=== PATIENT | female | born 1970 | race Caucasian/White ===

== ENCOUNTER 2017-05-31 15:07 | Emergency (ER) | payer OTHER ==
--- NOTE | 2017-05-31 15:11 | PDOC ---
Rapid Medical Evaluation Time Seen by Provider: 05/31/17 15:08 Medical Evaluation: Allergies Allergy/AdvReac Type Severity Reaction Status Date / Time No Known Allergies Allergy Verified 10/19/15 14:05 05/31/17 15:09 I have performed a brief in-person evaluation of this patient. The patient presents with a chief complaint of:? anxiety vs weakness x 1 month, worse today. Seen by her pmd 03/23 w/ negative labs per pt. No sig hx Pertinent physical exam findings:Stable I have ordered the following:labs/ua The patient will proceed to the ED for further evaluation. 05/31/17 15:14
[2017-05-31 15:16] VITALS: BP 151/93; PULSE 97; TEMP 98.1; BMI 38.0
[2017-05-31 15:36] LABS: BASO % 1.2 % (0-2.0); EOS % 1.4 % (0-4.5); HEMATOCRIT 33.2 % (32.4-45.2); HEMOGLOBIN 10.8 GM/dL (10.7-15.3); LYMPH % 18.3 % (8-40); MCH 23.1 pg (25.7-33.7); MCHC 32.4 g/dl (32.0-36.0); MEAN CELL VOLUME 71.2 fl (80-96); MONO % 4.8 % (3.8-10.2); NEUT % 74.3 % (42.8-82.8); PLATELET COUNT 306 K/MM3 (134-434); RBC 4.67 M/mm3 (3.60-5.2); RDW 17.6 % (11.6-15.6); URINE APPEARANCE CLEAR; URINE BILIRUBIN NEGATIVE (<2.0 mg/dL); URINE BLOOD NEGATIVE (NEGATIVE); URINE COLOR STRAW; URINE GLUCOSE (UA) NEGATIVE (NEGATIVE); URINE KETONE NEGATIVE (NEGATIVE); URINE LEUK ESTERASE NEGATIVE (NEGATIVE); URINE NITRITE NEGATIVE (NEGATIVE); URINE PROTEIN NEGATIVE (NEGATIVE); URINE UROBILINOGEN NEGATIVE mg/dL (0.2-1.0); WHITE BLOOD COUNT 9.2 K/mm3 (4.0-10.0)
[2017-05-31 15:37] LABS: HCG,QUALITATIVE URINE NEGATIVE
--- NOTE | 2017-05-31 17:15 | PDOC ---
History of Present Illness - General Chief Complaint: Pain Stated Complaint: Feeling nervous, left arm pain, calm Time Seen by Provider: 05/31/17 15:08 History Source: Patient Exam Limitations: No Limitations - History of Present Illness Initial Comments: 05/31/17 17:10 This 47-year-old woman without significant past medical history of presents to the emergency department with 1 month of intermittent nervousness and left arm pain. Patient states she has not contacted her primary M.D. for evaluation yet. She saw her primary doctor approximately 3 weeks ago for influenza-type symptoms. Patient states her symptoms have been primarily at home but over the past 2 days have been appearing while at work. The duration of symptoms were approximately one hour at onset but now off progressed to last 2-3 hours at a time. At present the patient denies all complaints. Patient denies any change in caffeine intake, life stressors, alcohol intake. Patient denies drug use and tobacco use. Past History - Past Medical History Allergies/Adverse Reactions: Allergies Allergy/AdvReac Type Severity Reaction Status Date / Time No Known Allergies Allergy Verified 05/31/17 16:41 Home Medications: Ambulatory Orders NK [No Known Home Medication] 10/19/15 COPD: No Other medical history: denies - Surgical History Abdominal Surgery: Yes - Suicide/Smoking/Psychosocial Hx Smoking Status: Yes Smoking History: Never smoked Have you smoked in the past 12 months: No Number of Cigarettes Smoked Daily: 0 If you are a former smoker, when did you quit?: 1999 Information on smoking cessation initiated: No Hx Alcohol Use: No Drug/Substance Use Hx: No Substance Use Type: Alcohol Review of Systems - Review of Systems Able to Perform ROS?: Yes Is the patient limited Swedish proficient: No Constitutional: No: Symptoms Reported HEENTM: No: Symptoms Reported Respiratory: No: Symptoms reported Cardiac (ROS): Yes: See HPI ABD/GI: No: Symptoms Reported : No: Symptoms Reported Musculoskeletal: No: Symptoms Reported Integumentary: No: Symptoms Reported Neurological: No: Symptoms reported Hematologic/Lymphatic: No: Symptoms Reported *Physical Exam - Vital Signs Last Vital Signs Temp Pulse Resp BP Pulse Ox 98.1 F 97 H 18 151/93 99 05/31/17 15:10 05/31/17 15:10 05/31/17 15:10 05/31/17 15:10 05/31/17 15:10 - Physical Exam General Appearance: Yes: Appropriately Dressed. No: Apparent Distress HEENT: positive: Normal ENT Inspection Neck: positive: Trachea midline, Supple Respiratory/Chest: positive: Lungs Clear, Normal Breath Sounds. negative: Respiratory Distress, Accessory Muscle Use Cardiovascular: positive: Regular Rate, S1, S2, Irregular (Patient with occasional missed beats noted during auscultation). negative: Edema, Murmur Gastrointestinal/Abdominal: positive: Normal Bowel Sounds, Soft. negative: Tender Musculoskeletal: positive: Normal Inspection. 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, Fully Oriented, Alert, Normal Mood/ Affect, Normal Response, Motor Strength 5/5 Heart Score/ECG Review - ECG Intrepretation Rhythm: PVC(s) (frequent) - ECG Impressions Normal ECG: Yes ED Treatment Course - LABORATORY CBC & Chemistry Diagram: 05/31/17 15:28 05/31/17 15:26 - ADDITIONAL ORDERS Additional order review: Laboratory Results 05/31/17 05/31/17 15:28 15:27 TSH 2.15 Urine Color Straw Urine Appearance Clear Urine pH 7.0 Ur Specific [place] 1.005 Urine Protein Negative Urine Glucose (UA) Negative Urine Ketones Negative Urine Blood Negative Urine Nitrite Negative Urine Bilirubin Negative Urine Urobilinogen Negative Ur Leukocyte Esterase Negative Urine HCG, Qual Negative 05/31/17 15:28 RBC 4.67 MCV 71.2 L MCHC 32.4 RDW 17.6 H D MPV 9.0 Neutrophils % 74.3 Lymphocytes % 18.3 D Monocytes % 4.8 Eosinophils % 1.4 Basophils % 1.2 Medical Decision Making - Medical Decision Making 05/31/17 17:15 CC: 1 month of intermittent nervousness A/P: 47-year-old over the past medical history of presents with 1 month of intermittent shakiness/nervousness Lungs clear to auscultation bilaterally. Regular rhythm with occasional missed beats noted on auscultation. No murmur, rub or gallop present. Abdomen soft nontender nondistended. Normoactive bowel sounds. Differential diagnosis include arrhythmia, hyperthyroidism, infection, anxiety EKG, urinalysis, urine testing, TSH Urinalysis and TSH testing within normal limits. UPT negative. EKGs normal sinus with occasional PVCs Discharge patient to follow-up with her primary doctor. 05/31/17 17:[address] Arizmendi who is covering for Dr. mancia. States frequent PVCs with absence of heart failure symptoms can be treated as an outpatient. I will refer patient to her primary doctor for continued workup for potential Holter monitor testing, echocardiogram and possible stress testing. *DC/Admit/Observation/Transfer Diagnosis at time of Disposition: PVCs (premature ventricular contractions) - Discharge Dispostion Disposition: HOME Condition at time of disposition: Stable Admit: No - Referrals Referrals: Stephen Hernandez MD [Primary Care Provider] - - Patient Instructions Additional Instructions: EKG showed frequent PVCs. He to make an appointment with her primary doctor for further evaluation and potential Holter monitor evaluation as an outpatient. Laboratory testing was normal. Avoid caffeine intake. Return to emergency department for shortness of breath, chest pain, nausea, vomiting, dizziness, passing out or any other concerns - Post Discharge Activity
[2017-05-31 17:39] LABS: ALBUMIN 3.5 g/dl (3.4-5.0); ANION GAP 5 (8-16); CALCIUM 8.8 mg/dL (8.5-10.1); CHLORIDE 107 mmol/L (98-107); CO2 28 mmol/L (21-32); GLUCOSE,RANDOM 129 mg/dL (74-106); POTASSIUM 4.2 mmol/L (3.5-5.1); SODIUM 140 mmol/L (136-145)
[2017-05-31 17:42] LABS: ALK PHOS 199 U/L (45-117); BILIRUBIN,TOTAL 0.2 mg/dL (0.2-1.0); BLOOD UREA NITROGEN 7 mg/dL (7-18); CREATININE 0.8 mg/dL (0.55-1.02); SGOT/AST 44 U/L (15-37); SGPT/ALT 69 U/L (12-78); TOT PROT 7.5 g/dl (6.4-8.2)
--- NOTE | 2017-06-01 11:41 | EKG ---
Test Reason : Blood Pressure : / mmHG Vent. Rate : 083 BPM Atrial Rate : 083 BPM P-R Int : 128 ms QRS Dur : 080 ms QT Int : 372 ms P-R-T Axes : 032 -07 011 degrees QTc Int : 437 ms SINUS RHYTHM WITH PREMATURE SUPRAVENTRICULAR COMPLEXES OTHERWISE NORMAL ECG WHEN COMPARED WITH ECG OF 22-DEC-2011 18:38, PREMATURE SUPRAVENTRICULAR COMPLEXES ARE NOW PRESENT Confirmed by ARANZA MILLAN, KENY ([id number]) on 06/01/2017 11:40:38 AM Referred By: Ricarda ESPINOZA Confirmed By:KENY COBIAN MD
== END 2017-05-31 17:57 | disposition home or self-care (01) ==
LOC: JERFT 15:07
DX: I49.3 Ventricular premature depolarization (principal)
CPT/HCPCS: 36415; 80053; 81003; 84443; 84703; 85025; 93005; 93010; 99281-25

== ENCOUNTER 2017-10-10 18:53 | Observation (INO) | payer OTHER ==
--- NOTE | 2017-10-10 19:09 | PDOC ---
Rapid Medical Evaluation Chief Complaint: Head/Neck problem Time Seen by Provider: 10/10/17 19:07 Medical Evaluation: Allergies Allergy/AdvReac Type Severity Reaction Status Date / Time No Known Allergies Allergy Verified 06/06/17 10:41 10/10/17 19:07 I have performed a brief in-person evaluation of this patient. The patient presents with a chief complaint of: L facial/UE numbness w/ generalized weakness that started at 6pm today Pertinent physical exam findings:stable and in NAD w/ ? sensation to L face compared to R I have ordered the following: CT head/labs The patient will proceed to the ED for further evaluation. 10/10/17 19:13 Discharge Disposition - Diagnosis Left sided numbness - Referrals - Patient Instructions - Post Discharge Activity
--- NOTE | 2017-10-10 19:44 | PDOC ---
Attending Attestation - Resident Resident Name: Reno Sawyer - ED Attending Attestation I have performed the following: I have examined & evaluated the patient, The case was reviewed & discussed with the resident, I agree w/resident's findings & plan, Exceptions are as noted - Physicial Exam PE: 10/10/17 22:06 Physical Exam General Appearance: Yes: Appropriately Dressed. No: Apparent Distress, Intoxicated HEENT: positive: EOMI, LGOAN, Normal ENT Inspection, Normal Voice, TMs Normal, Pharynx Normal. negative: Pale Conjunctivae, Photophobia, Scleral Icterus (R), Scleral Icterus (L) Neck: positive: Trachea midline, Normal Thyroid, Supple. negative: Tender, Rigid, Carotid bruit, Stridor, Lymphadenopathy (R), Lymphadenopathy (L), Thyromegaly Respiratory/Chest: positive: Lungs Clear, Normal Breath Sounds. negative: Chest Tender, Respiratory Distress, Accessory Muscle Use, Labored Respiration, RES, Crackles, Rales, Rhonchi, Stridor, Wheezing, Dullness Cardiovascular: positive: Regular Rhythm, Regular Rate, S1, S2. negative: Edema , JVD, Murmur, Bradycardia, Tachycardia Vascular Pulses: Dorsalis-Pedis (R): 2+, Doralis-Pedis (L): 2+ Gastrointestinal/Abdominal: positive: Normal Bowel Sounds, Flat, Soft. negative : Tender, Organomegaly, Pulsatile Mass, Increased Bowel Sounds, Decreased BS, Distended, Guarding, Rebound, Hernia, Hepatomegaly, Spleenomegaly Lymphatic: negative: Adenopathy, Tenderness Musculoskeletal: positive: Normal Inspection. negative: CVA Tenderness, Decreased Range of Motion Extremity: positive: Normal Capillary Refill, Normal Inspection, Normal Range of Motion, Pelvis Stable. negative: Tender, Pedal Edema, Swelling, Erythema Integumentary: positive: Normal Color, Dry, Warm. 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 negative: EOM Palsy, Facial Droop, Sensory Deficit - Medical Decision Making 10/10/17 22:07 Pt will be admitted for further evaluation and care <Ezequiel Bahena - Last Filed: 10/10/17 22:06> - HPI HPI: 10/10/17 20:04 The patient is a 47 year old female, with a significant past medical history of fatty liver, who presents to the emergency department with, an hour and half of numbness to the left side of the face and left upper extremity. She reports associated generalized weakness. She denies any recent head trauma. She denies any pain. She denies recent fevers , chills, headache or dizziness. She denies recent nausea, vomit, diarrhea or constipation. She denies recent dysuria, frequency, urgency or hematuria. She denies recent chest pain or shortness of breath. Allergies: NKA Past surgical history: None reported. Social history: Former smoker; quit in 1999. Alcohol use. No reported drug use. Primary Care Physician: Dr. Hernandez <Gabe Kelly - Last Filed: 10/11/17 01:04> Heart Score/ECG Review #1 10/11/17 01:02 EKG performed at: 11 Oct 2017 at 0:57:09 Vent Rate [address] interval 122 ms QRS duration 82 ms QT/QTc 406/456 ms P-R-T axes 27 -12 0 Normal sinus rhythm T wave abnormality, consider anterior ischemia Abnormal ECG <Gabe Kelly - Last Filed: 10/11/17 01:04> Attestations - Attestations 10/10/17 20:05 Documentation prepared by Gabe Kelly, acting as medical social worker for Ezeuqiel Bahena DO. 10/10/17 21:17 <Gabe Kelly - Last Filed: 10/11/17 01:04>
[2017-10-10 21:15] LABS: HEMATOCRIT 35.3 % (32.4-45.2); HEMOGLOBIN 11.5 GM/dL (10.7-15.3); LYMPH % 12.5 % (8-40); MCHC 32.5 g/dl (32.0-36.0); MEAN CELL VOLUME 73.9 fl (80-96); MONO % 4.7 % (3.8-10.2); NEUT % 80.8 % (42.8-82.8); PLATELET COUNT 280 K/MM3 (134-434); RBC 4.78 M/mm3 (3.60-5.2); WHITE BLOOD COUNT 10.5 K/mm3 (4.0-10.0)
[2017-10-10 21:16] LABS: URINE APPEARANCE CLEAR; URINE BILIRUBIN NEGATIVE (<2.0 mg/dL); URINE COLOR STRAW; URINE GLUCOSE (UA) NEGATIVE (NEGATIVE); URINE KETONE NEGATIVE (NEGATIVE); URINE LEUK ESTERASE NEGATIVE (NEGATIVE); URINE NITRITE NEGATIVE (NEGATIVE); URINE PROTEIN NEGATIVE (NEGATIVE); URINE UROBILINOGEN NEGATIVE mg/dL (0.2-1.0)
[2017-10-10 21:31] LABS: ALBUMIN 3.9 g/dl (3.4-5.0); ANION GAP 9 (8-16); BILIRUBIN,TOTAL 0.4 mg/dL (0.2-1.0); BLOOD UREA NITROGEN 10 mg/dL (7-18); CALCIUM 8.8 mg/dL (8.5-10.1); CHLORIDE 108 mmol/L (98-107); CO2 26 mmol/L (21-32); CREATININE 0.9 mg/dL (0.55-1.02); GLUCOSE,RANDOM 117 mg/dL (74-106); INR 1.02 (0.83-1.09); PROTHROMBIN TIME (PATIENT) 11.5 SEC (9.7-13.0); SGOT/AST 34 U/L (15-37); SGPT/ALT 71 U/L (12-78); SODIUM 143 mmol/L (136-145); TOT PROT 8.1 g/dl (6.4-8.2)
[2017-10-10 21:33] LABS: ALK PHOS 219 U/L (45-117)
--- NOTE | 2017-10-10 22:22 | PDOC ---
History of Present Illness - General Chief Complaint: Head/Neck problem Stated Complaint: NUMBNESS FACE AND LEFT ARM SINCE 6PM Time Seen by Provider: 10/10/17 19:07 History Source: Patient Exam Limitations: No Limitations - History of Present Illness Initial Comments: 10/10/17 22:24 Ms. Casiano is a 47 yo F with a hx of afib (recent dx as of June 2017) who presented to the emergency department with facial numbness on the right side. She states it occurred at 5:50 pm where she had numbness on the mid face right side and upper right side face. She states that she took aspirin 81 mg at 6:10 pm. She denies focal neuro deficits and a headache. Denies the following: fever , chest pain, SOB, diarrhea, hematuria, dysuria, and diarrhea. Denies nausea and vomiting. Pmhx: afib Shx: lasix bilaterally 2017 Medications: metoprolol and omeprazole. No anticoagulants. Allergies: None Social history: denies smoking, alcohol, and drug use. 10/12/17 16:37 tPA Exclusion Checklist 0-3hr - Time Elapsed Date last known well: 10/10/17 Time last known well: 17:50 Elaspsed time: 2 Day(s) and 13 Hour(s) and 54 Minutes - Thrombolytic Therapy Candidate Is the patient eligible for Thrombolytic Therapy?: Yes - Exclusion Criteria 0-3hr SBP greater than 185 or DBP greater than 110mmHg despite tx: No Recent IC/spinal surgery,head trauma or stroke w/in last 3mo: No Hx of previous IC hemorrhage, IC neoplasm, AVM or aneurysm: No Active internal bleeding: No Blding diathesis(low plt ct, inc PTT,INR>1.7 or use of NOAC): No Symptoms suggest subarachnoid hemorrhage: No CT demonstrates multilobar infarct(>1/3 cerebral hemiphere): No Arterial puncture at noncompressible site in previous 7 days: No Blood glucose concentration less than 50mg/dL (2.7mmol/L): No - Relative Exclusion Criteria 0-3h Life expectancy <1yr/severe co-morbid illness/ENGINEERING 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 symptoms were very mild. risks outweigh benefits.) NIH Stroke Scale - Last Known Well Date/Time & Onset Date Last Known Well: 10/10/17 Time Last Known Well: 17:50 - Initial Evaluation Level of consciousness: Alert Ask patient the month and their age: Answers both correctly Ask patient to open & close eyes; make fist and let go: Obeys both correctly Best gaze (horizontal eye movement): Normal Visual field testing: No visual field loss Facial paresis (Show teeth/raise eyebrows/close eyes tight): Normal symmetrical movement Motor Function: Left Arm: Normal Motor Function: Right Arm: Normal (extends arm 90 (or 45) degrees for 10 seconds without drift Motor Function: Left Leg: Normal (extends leg 30 degrees for 5 seconds without drift) Motor Function: Right Leg: Normal (extends leg 30 degrees for 5 seconds without drift) Limb Ataxia: No ataxia Sensory(Use pinprick test arms,legs,trunk,face/side to side): Normal Best language (Describe picture, name items, read sentences): No Aphasia Dysarthria (read several words): Normal articulation Extinction and Inattention: No abnormality - Total Score NIH Stroke Scale Score: 0 Past History - Past Medical History Allergies/Adverse Reactions: Allergies Allergy/AdvReac Type Severity Reaction Status Date / Time No Known Allergies Allergy Verified 10/11/17 03:39 Home Medications: Ambulatory Orders Metoprolol Succinate [Toprol XL -] 25 mg PO DAILY #30 tab.sr.24h 06/09/17 Omeprazole 20 mg PO DAILY 10/11/17 Aspirin [ASA -] 81 mg PO DAILY tab.chew 10/12/17 Atorvastatin Ca [Lipitor] 40 mg PO HS #30 tablet 10/12/17 Cyclobenzaprine HCl [Flexeril -] 5 mg PO DAILY #30 tablet 10/12/17 Cardiac Disorders: Yes (IRREGULAR HEARTBEAT) COPD: No DVT: No - Surgical History Abdominal Surgery: Yes (TUBAL LIGATION) - Suicide/Smoking/Psychosocial Hx Smoking Status: Yes Smoking History: Never smoked Have you smoked in the past 12 months: No Number of Cigarettes Smoked Daily: 0 If you are a former smoker, when did you quit?: 1999 Information on smoking cessation initiated: No Hx Alcohol Use: No Drug/Substance Use Hx: No Substance Use Type: None Hx Substance Use Treatment: No Review of Systems - Review of Systems Constitutional: No: Chills, Diaphoresis, Fever HEENTM: No: Recent change in vision, Nose Pain, Throat Pain, Mouth Pain Respiratory: No: Cough, Shortness of Breath Cardiac (ROS): No: Chest Pain, Syncope ABD/GI: No: Constipated, Diarrhea, Nausea, Rectal Bleeding, Vomiting, Tarry Stools : No: Burning, Dysuria Musculoskeletal: No: Back Pain Neurological: Yes: Numbness, Weakness (facial numbness and weakness right side) . No: Headache Psychiatric: No: Frequent Crying Endocrine: No: Unexplained Weight Loss Hematologic/Lymphatic: No: Anemia *Physical Exam - Vital Signs Last Vital Signs Temp Pulse Resp BP Pulse Ox 98.1 F 85 18 154/67 98 10/10/17 19:05 10/10/17 19:05 10/10/17 19:05 10/10/17 19:05 10/10/17 19:05 - Physical Exam General Appearance: Yes: Nourished, Appropriately Dressed HEENT: positive: EOMI, LOGAN, Normal Voice, Symmetrical Neck: negative: Lymphadenopathy (R), Lymphadenopathy (L) Respiratory/Chest: positive: Lungs Clear, Normal Breath Sounds Cardiovascular: positive: Regular Rhythm, Regular Rate, S1, S2. negative: Systolic Murmur Gastrointestinal/Abdominal: positive: Normal Bowel Sounds. negative: Tender Lymphatic: negative: Adenopathy Musculoskeletal: negative: CVA Tenderness Extremity: positive: Normal Capillary Refill, Normal Inspection, Normal Range of Motion. 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 negative: Abnormal Cranial NS, Facial Droop, Confused, Disoriented Heart Score/ECG Review - ECG Intrepretation Comment:: 10/13/17 07:47 normal sinus rhythm with 76 bpm with pr 122, qtc 456, and qrs 82 ms. T wave inversion in V2 and V3. No st elevations. ED Treatment Course - LABORATORY CBC & Chemistry Diagram: 10/11/17 08:15 10/11/17 08:15 - ADDITIONAL ORDERS Additional order review: Laboratory Results 10/10/17 10/10/17 10/10/17 21:00 20:50 20:50 PT with INR 11.50 INR 1.02 Sodium Potassium Chloride Carbon Dioxide Anion Gap BUN Creatinine Creat Clearance w eGFR Random Glucose Calcium Total Bilirubin AST ALT Alkaline Phosphatase Creatine Kinase Troponin I Total Protein Albumin Urine Color Straw Urine Appearance Clear Urine pH 6.0 Ur Specific [place] 1.003 Urine Protein Negative Urine Glucose (UA) Negative Urine Ketones Negative Urine Blood Negative Urine Nitrite Negative Urine Bilirubin Negative Urine Urobilinogen Negative Ur Leukocyte Esterase Negative Blood Type O POSITIVE Antibody Screen Negative 10/10/17 20:50 PT with INR INR Sodium 143 Potassium 4.0 Chloride 108 H Carbon Dioxide 26 Anion Gap 9 BUN 10 Creatinine 0.9 Creat Clearance w eGFR > 60 Random Glucose 117 H Calcium 8.8 Total Bilirubin 0.4 AST 34 ALT 71 Alkaline Phosphatase 219 H Creatine Kinase 38 Troponin I < 0.02 Total Protein 8.1 Albumin 3.9 Urine Color Urine Appearance Urine pH Ur Specific [place] Urine Protein Urine Glucose (UA) Urine Ketones Urine Blood Urine Nitrite Urine Bilirubin Urine Urobilinogen Ur Leukocyte Esterase Blood Type Antibody Screen 10/10/17 20:50 RBC 4.78 MCV 73.9 L MCHC 32.5 RDW 17.0 H MPV 9.0 Neutrophils % 80.8 D Lymphocytes % 12.5 D Monocytes % 4.7 Eosinophils % 1.0 Basophils % 1.0 Medical Decision Making - Medical Decision Making 10/12/17 16:40 Ms. Casiano is a 47 yo F with a hx afib presenting to the ED with facial droop. based on hx and physical exam, r/o CVA. Initial vitals: Initial Vital Signs Temp Pulse Resp BP Pulse Ox 98.1 F 85 18 154/67 98 10/10/17 19:05 10/10/17 19:05 10/10/17 19:05 10/10/17 19:05 10/10/17 19:05 Work up: Laboratory Tests 10/10/17 10/10/17 10/10/17 20:50 20:50 20:50 WBC 10.5 H RBC 4.78 Hgb 11.5 Hct 35.3 MCV 73.9 L MCH 24.0 L MCHC 32.5 RDW 17.0 H Plt Count 280 MPV 9.0 Absolute Neuts (auto) 8.5 Neutrophils % 80.8 D Lymphocytes % 12.5 D Monocytes % 4.7 Eosinophils % 1.0 Basophils % 1.0 Nucleated RBC % 0 PT with INR INR Sodium 143 Potassium 4.0 Chloride 108 H Carbon Dioxide 26 Anion Gap 9 BUN 10 Creatinine 0.9 Creat Clearance w eGFR > 60 Random Glucose 117 H Calcium 8.8 Phosphorus Magnesium Total Bilirubin 0.4 AST 34 ALT 71 Alkaline Phosphatase 219 H Creatine Kinase 38 Troponin I < 0.02 Total Protein 8.1 Albumin 3.9 Triglycerides Cholesterol Total LDL Cholesterol HDL Cholesterol TSH Urine Color Urine Appearance Urine pH Ur Specific [place] Urine Protein Urine Glucose (UA) Urine Ketones Urine Blood Urine Nitrite Urine Bilirubin Urine Urobilinogen Ur Leukocyte Esterase Blood Type O POSITIVE Antibody Screen Negative 10/10/17 10/10/17 10/11/17 20:50 21:00 08:15 WBC 7.0 RBC 4.63 Hgb 11.1 Hct 34.4 MCV 74.2 L MCH 24.0 L MCHC 32.3 RDW 16.7 H Plt Count 266 MPV 9.5 Absolute Neuts (auto) Neutrophils % Lymphocytes % Monocytes % Eosinophils % Basophils % Nucleated RBC % PT with INR 11.50 INR 1.02 Sodium Potassium Chloride Carbon Dioxide Anion Gap BUN Creatinine Creat Clearance w eGFR Random Glucose Calcium Phosphorus Magnesium Total Bilirubin AST ALT Alkaline Phosphatase Creatine Kinase Troponin I Total Protein Albumin Triglycerides Cholesterol Total LDL Cholesterol HDL Cholesterol TSH Urine Color Straw Urine Appearance Clear Urine pH 6.0 Ur Specific [place] 1.003 Urine Protein Negative Urine Glucose (UA) Negative Urine Ketones Negative Urine Blood Negative Urine Nitrite Negative Urine Bilirubin Negative Urine Urobilinogen Negative Ur Leukocyte Esterase Negative Blood Type Antibody Screen 10/11/17 10/11/17 08:15 08:15 WBC RBC Hgb Hct MCV MCH MCHC RDW Plt Count MPV Absolute Neuts (auto) Neutrophils % Lymphocytes % Monocytes % Eosinophils % Basophils % Nucleated RBC % PT with INR INR Sodium 139 Potassium 4.4 Chloride 105 Carbon Dioxide 24 Anion Gap 10 BUN 9 Creatinine 0.7 Creat Clearance w eGFR > 60 Random Glucose 89 Calcium 8.8 Phosphorus 3.4 Magnesium 2.3 Total Bilirubin AST ALT Alkaline Phosphatase Creatine Kinase Troponin I Total Protein Albumin Triglycerides 84 Cholesterol 173 Total LDL Cholesterol 105 H HDL Cholesterol 51 TSH 3.70 Urine Color Urine Appearance Urine pH Ur Specific [place] Urine Protein Urine Glucose (UA) Urine Ketones Urine Blood Urine Nitrite Urine Bilirubin Urine Urobilinogen Ur Leukocyte Esterase Blood Type Antibody Screen Head CT and trops were within normal limits. Observation in the ED for symptom worsening. 10/13/17 07:48 10/13/17 07:51 *DC/Admit/Observation/Transfer Diagnosis at time of Disposition: Left sided numbness - Discharge Dispostion Disposition: HOME Condition at time of disposition: Good - Prescriptions - Referrals - Patient Instructions - Post Discharge Activity
--- NOTE | 2017-10-10 23:51 | HP ---
CHIEF COMPLAINT: numbness PCP: Dr. Hernandez HISTORY OF PRESENT ILLNESS: 47 year old female with a hx of fatty liver disease, hypertension and GERD, "irregular heart rate" presents to the hospital for L sided neck/arm and L facial numbness. She states that about 1.5 hours prior to presentation, she felt numbness on the L side of her neck radiating down the L arm. When she was coming back from work, she noted that the L side of her face became numb from the cheek down to the L side of her mouth. Denies weakness, headache, blurry vision, changes to her vision. Denies this ever happening to her in the past. Denies chest pain, SOB, nausea, vomiting, diarrhea, fevers, chills. ER course was notable for: (1) CT head negative (2) WBC 10.5 (3) Recent Travel: denies PAST MEDICAL HISTORY: fatty liver disease, hypertension and GERD PAST SURGICAL HISTORY: Social History: Smoking: former (quit 18 years ago) Alcohol: Denies Drugs: denies Family History: no hx of stroke, heart disease, or DM Allergies No Known Allergies Allergy (Verified 10/10/17 19:09) HOME MEDICATIONS: Home Medications Medication Instructions Recorded Metoprolol Succinate [Toprol XL -] 25 mg PO DAILY #30 tab.sr.24h 06/09/17 REVIEW OF SYSTEMS CONSTITUTIONAL: Absent: fever, chills, diaphoresis, generalized weakness, malaise, loss of appetite, weight change HEENT: Absent: rhinorrhea, nasal congestion, throat pain, throat swelling, difficulty swallowing, mouth swelling, ear pain, eye pain, visual changes CARDIOVASCULAR: Absent: chest pain, syncope, palpitations, irregular heart rate, lightheadedness , peripheral edema RESPIRATORY: Absent: cough, shortness of breath, dyspnea with exertion, orthopnea, wheezing, stridor, hemoptysis GASTROINTESTINAL: Absent: abdominal pain, abdominal distension, nausea, vomiting, diarrhea, constipation, melena, hematochezia GENITOURINARY: Absent: dysuria, frequency, urgency, hesitancy, hematuria, flank pain, genital pain MUSCULOSKELETAL: Absent: myalgia, arthralgia, joint swelling, back pain, neck pain SKIN: Absent: rash, itching, pallor HEMATOLOGIC/IMMUNOLOGIC: Absent: easy bleeding, easy bruising, lymphadenopathy, frequent infections ENDOCRINE: Absent: unexplained weight gain, unexplained weight loss, heat intolerance, cold intolerance NEUROLOGIC: paresthesias Absent: headache, focal weakness, dizziness, unsteady gait, seizure, mental status changes, bladder or bowel incontinence PSYCHIATRIC: Absent: anxiety, depression, suicidal or homicidal ideation, hallucinations. PHYSICAL EXAMINATION Vital Signs - 24 hr 10/10/17 19:05 Temperature 98.1 F Pulse Rate 85 Respiratory 18 Rate Blood Pressure 154/67 O2 Sat by Pulse 98 Oximetry (%) GENERAL: A&Ox3 EYES: PERRLA, EOMI LUNGS: CTA, no wheezes HEART: RRR, no murmurs ABDOMEN: soft, nontender, bs present NEUROLOGICAL: Cranial nerves II-XII intact. Normal speech. Normal gait. No dysmetria, normal sensation SKIN: Warm, dry, normal turgor, no rashes or lesions noted, normal capillary refill. Laboratory Results - last 24 hr 10/10/17 10/10/17 10/10/17 20:50 20:50 20:50 WBC 10.5 H RBC 4.78 Hgb 11.5 Hct 35.3 MCV 73.9 L MCH 24.0 L MCHC 32.5 RDW 17.0 H Plt Count 280 MPV 9.0 Absolute Neuts (auto) 8.5 Neutrophils % 80.8 D Lymphocytes % 12.5 D Monocytes % 4.7 Eosinophils % 1.0 Basophils % 1.0 Nucleated RBC % 0 PT with INR INR Sodium 143 Potassium 4.0 Chloride 108 H Carbon Dioxide 26 Anion Gap 9 BUN 10 Creatinine 0.9 Creat Clearance w eGFR > 60 Random Glucose 117 H Calcium 8.8 Total Bilirubin 0.4 AST 34 ALT 71 Alkaline Phosphatase 219 H Creatine Kinase 38 Troponin I < 0.02 Total Protein 8.1 Albumin 3.9 Urine Color Urine Appearance Urine pH Ur Specific [place] Urine Protein Urine Glucose (UA) Urine Ketones Urine Blood Urine Nitrite Urine Bilirubin Urine Urobilinogen Ur Leukocyte Esterase Blood Type O POSITIVE Antibody Screen Negative 10/10/17 10/10/17 20:50 21:00 WBC RBC Hgb Hct MCV MCH MCHC RDW Plt Count MPV Absolute Neuts (auto) Neutrophils % Lymphocytes % Monocytes % Eosinophils % Basophils % Nucleated RBC % PT with INR 11.50 INR 1.02 Sodium Potassium Chloride Carbon Dioxide Anion Gap BUN Creatinine Creat Clearance w eGFR Random Glucose Calcium Total Bilirubin AST ALT Alkaline Phosphatase Creatine Kinase Troponin I Total Protein Albumin Urine Color Straw Urine Appearance Clear Urine pH 6.0 Ur Specific [place] 1.003 Urine Protein Negative Urine Glucose (UA) Negative Urine Ketones Negative Urine Blood Negative Urine Nitrite Negative Urine Bilirubin Negative Urine Urobilinogen Negative Ur Leukocyte Esterase Negative Blood Type Antibody Screen ASSESSMENT/PLAN: 47 year old female with a hx of fatty liver disease, hypertension and GERD presents to the hospital for L sided neck/arm and L facial numbness suspect for TIA vs neuropathy #Facial and Numbness: TIA vs acute neuropathy -CT head negative -f/u ECG, was not done in ED -Neurology consulted -echo -carotid doppler -may need EMG to assess for L arm neuropathy -ASA 81 -atorvastatin 40mg -lipid profile ordered -cardiac monitoring #HTN: chronic -resume metoprolol #GERD -resume omeprazole #FEN -no standing fluids -lytes wnl -cholesterol diet #Prophylaxis -early ambulation #Disposition -tele obs Visit type - Emergency Visit Emergency Visit: Yes Care time: The patient presented to the Emergency Department on the above date and was hospitalized for further evaluation of their emergent condition. - New Patient This patient is new to me today: Yes Date on this admission: 10/11/17 - Critical Care Critical Care patient: No Hospitalist Screening - Colonoscopy Questionnaire Colonoscopy Questionnaire: Colonoscopy Questionnaire - Patient: 50 - 75 years old and never had a screening colonoscopy: Unknown History of colon or rectal polyps, or CA: Unknown History of IBD, Crohn's disease or UC: Unknown History of abdominal radiation therapy as a child: Unknown - Relative: 1 with colon or rectal CA, or polyps at age 60 or younger: Unknown Colon or rectal CA diagnosed at age 45 or younger: Unknown Multiple relatives with colon or rectal CA: Unknown - Outcome: Screening Result: Negative Screen
[2017-10-11] MEDS ORDERED: HEPARIN NA (PORCINE) 5,000 UNITS/ML 1ML VIAL SQ SCH (02:00)
[2017-10-11] MEDS ORDERED: HEPARIN NA (PORCINE) 5,000 UNITS/ML 1ML VIAL ONE ×2 (02:14→09:23)
--- NOTE | 2017-10-11 03:32 | PN ---
Teaching Attending Note Name of Resident: Emeterio Godoy ATTENDING PHYSICIAN STATEMENT I saw and evaluated the patient. Chart, data, imaging reviewed. I reviewed the resident's note and discussed the case with the resident. I agree with the resident's findings and plan as documented. SUBJECTIVE: 47 year old female with a hx of fatty liver disease, hypertension and GERD, c/o pain in neck with radiation down left upper extremity associated with a tingling sensation and numbness on the left side of her face. This started on 10/10 in the afternoon when pt was in her car. Denied any significant headaches or other weaknesses. OBJECTIVE: Last Vital Signs Temp Pulse Resp BP Pulse Ox 98.1 F 85 18 154/67 98 10/10/17 19:05 10/10/17 19:05 10/10/17 19:05 10/10/17 19:05 10/10/17 19:05 General - nad, aaox3 heent- at, nc neck supple, mild tenderness on posterior palpation cv - s1+s2+ rrr chest clear abdomen soft to palpation ext - no pedal edema neuro no focal deficits seen Abnormal Lab Results 10/10/17 10/10/17 20:50 20:50 WBC 10.5 H MCV 73.9 L MCH 24.0 L RDW 17.0 H Chloride 108 H Random Glucose 117 H Alkaline Phosphatase [address] was neg for any acute intracranial insults ASSESSMENT AND PLAN: 47yo woman with likely radiculopathy involving brachial and possibly cervical plexus. Doubt CVA in this case given her presentation, more consistent with radicular pain. -tele-obs -neurology consult -xray of spine -trial of flexeril -ibuprofen -EMG studies of left upper ext -transthoracic echo -carotid duplex -NPO for now -heparin sc for dvt ppx
--- NOTE | 2017-10-11 08:22 | CON.NEURO ---
Consult - Past Medical History ...LMP: 05/26/17 - Past Surgical History Past Surgical History: Yes: None - Alcohol/Substance Use Hx Alcohol Use: No History of Substance Use: reports: None - Smoking History Smoking history: Never smoked Have you smoked in the past 12 months: No Aproximately how many cigarettes per day: 0 If you are a former smoker, when did you quit?: 1999 - Social History ADL: Independent History of Recent Travel: No Home Medications - Allergies Allergies/Adverse Reactions: Allergies Allergy/AdvReac Type Severity Reaction Status Date / Time No Known Allergies Allergy Verified 10/11/17 03:39 - Home Medications Home Medications: Ambulatory Orders Metoprolol Succinate [Toprol XL -] 25 mg PO DAILY #30 tab.sr.24h 06/09/17 Omeprazole 20 mg PO DAILY 10/11/17 Family Disease History - Family Disease History Family Disease History: Diabetes: Mother Physical Exam-Neuro Vital Signs: Vital Signs Temperature 98.1 F 10/10/17 19:05 Pulse Rate 85 10/10/17 19:05 Respiratory Rate 18 10/10/17 19:05 Blood Pressure 154/67 10/10/17 19:05 O2 Sat by Pulse Oximetry (%) 98 10/10/17 19:05 Labs: CBC, BMP 10/10/17 20:50 10/10/17 20:50 INR, PTT INR 1.02 (0.83-1.09) 10/10/17 20:50 Assessment/Plan CC Transient left sided numbness HPI 47 year old female history of htn, rapid heart rate, reflux, fatty liver diseae . 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 She was driving home from work and experience left face numbness, and it spread to arm and leg. She came to ed, and was evauluated for tpa and symptoms were resolving. She denies taking apsirin statin, no dm, no cad or stroke in past. Her mom has diabetes. Past Medical History as above PSH , ROS, FH, SH reviewed in chart NKDA Social History: Smoking: former (quit 18 years ago) Alcohol: Denies Drugs: denies HOME MEDICATIONS: Home Medications Medication Instructions Recorded Metoprolol Succinate [Toprol XL -] 25 mg PO DAILY #30 tab.sr.24h 06/09/17 Neurological Examination bp 154/67 Alert oriented x 3 speech is normal eomi, pupils reactive, no face asymmetry facial arm and leg sensation is normal motor strength in upper and lower extremity is noraml reflex are normal and symmetrical ct head is normal Assessment- Probable TIA, sensory symptoms resolved. Plan- concur with primary to start aspirin and statin( already ordered) - I would add carotid ultrasound adn mri of brain - risk factor modification( diet and lossing weight) were discussed - stroke education was discussed -Follow up outpatient Thanking you so much Harpreet Mullen MD
[2017-10-11 09:03] LABS: HEMATOCRIT 34.4 % (32.4-45.2); HEMOGLOBIN 11.1 GM/dL (10.7-15.3); MCHC 32.3 g/dl (32.0-36.0); MEAN CELL VOLUME 74.2 fl (80-96); MEAN PLT VOLUME 9.5 fl (7.5-11.1); PLATELET COUNT 266 K/MM3 (134-434); RBC 4.63 M/mm3 (3.60-5.2); RDW 16.7 % (11.6-15.6)
[2017-10-11 09:25] LABS: CHLORIDE 105 mmol/L (98-107); POTASSIUM 4.4 mmol/L (3.5-5.1); SODIUM 139 mmol/L (136-145)
[2017-10-11] MEDS: HEPARIN NA (PORCINE) 5,000 UNITS/ML 1ML VIAL SQ SCH ×3 (09:27→21:24)
--- NOTE | 2017-10-11 10:28 | EKG ---
Test Reason : Blood Pressure : / mmHG Vent. Rate : 076 BPM Atrial Rate : 076 BPM P-R Int : 122 ms QRS Dur : 082 ms QT Int : 406 ms P-R-T Axes : 027 -12 000 degrees QTc Int : 456 ms NORMAL SINUS RHYTHM T WAVE ABNORMALITY, CONSIDER ANTERIOR ISCHEMIA ABNORMAL ECG WHEN COMPARED WITH ECG OF 08-JUN-2017 01:28, PREMATURE VENTRICULAR COMPLEXES ARE NO LONGER PRESENT VENT. RATE HAS DECREASED BY 64 BPM T WAVE INVERSION NOW EVIDENT IN ANTERIOR LEADS Confirmed by IDEGO MILLAN, JAME ([id number]) on 10/11/2017 10:28:23 AM Referred By: Confirmed By:JAME CORTEZ MD
[2017-10-11] MEDS: metoPROLOL SUCCINATE 25 MG TAB.SR.24H (FP) PO SCH (11:00)
[2017-10-11] MEDS: CYCLOBENZAPRINE HCL 10 MG TABLET (FP) PO SCH (11:00)
[2017-10-11] MEDS: ASPIRIN 81 MG CHEWABLE TABLETS PO SCH (11:00)
[2017-10-11 11:05] LABS: ANION GAP 10 (8-16); BLOOD UREA NITROGEN 9 mg/dL (7-18); CALCIUM 8.8 mg/dL (8.5-10.1); CO2 24 mmol/L (21-32); CREATININE 0.7 mg/dL (0.55-1.02); GLUCOSE,RANDOM 89 mg/dL (74-106); PHOSPHOROUS 3.4 mg/dL (2.5-4.9)
[2017-10-11 11:06] LABS: MAGNESIUM 2.3 mg/dL (1.8-2.4)
--- NOTE | 2017-10-11 13:03 | PN ---
Progress Note, Physician Chief Complaint: Ms Casiano says the numbness has resolved. She is having pain in her left arm but this is chronic and it comes and goes. No cp, sob, n/v. - Current Medication List Current Medications: Active Medications Aspirin (Asa -) 81 mg PO DAILY [facility] Last Admin: 10/11/17 11:00 Dose: 81 mg Atorvastatin Calcium (Lipitor -) 40 mg PO [facility] Cyclobenzaprine HCl (Flexeril -) 5 mg PO DAILY [facility] Last Admin: 10/11/17 11:00 Dose: 5 mg Heparin Sodium (Porcine) (Heparin -) 5,000 unit SQ TID [facility] Last Admin: 10/11/17 09:27 Dose: 5,000 unit Metoprolol Succinate (Toprol Xl -) 25 mg PO DAILY [facility] Last Admin: 10/11/17 11:00 Dose: 25 mg - Objective Vital Signs: Vital Signs Temperature 36.7 C 10/10/17 19:05 Pulse Rate 84 10/11/17 11:24 Respiratory Rate 18 10/11/17 11:24 Blood Pressure 108/60 10/11/17 11:24 O2 Sat by Pulse Oximetry (%) 100 10/11/17 11:24 Constitutional: Yes: No Distress, Calm, Obese Cardiovascular: Yes: Regular Rate and Rhythm. No: Gallop, Murmur, Rub Respiratory: Yes: Regular, CTA Bilaterally. No: Rales, Rhonchi, Wheezes Gastrointestinal: Yes: Normal Bowel Sounds, Soft. No: Distention, Tenderness Extremities: Yes: WNL Edema: No Labs: CBC, BMP 10/11/17 08:15 10/11/17 08:15 INR, PTT INR 1.02 (0.83-1.09) 10/10/17 20:50 Problem List - Problems (1) Left sided numbness Assessment/Plan: -appreciate neurology assistance -carotid ultrasound reviewed -ECHO performed, awaiting read -MRI ordered Code(s): R20.0 - ANESTHESIA OF SKIN (2) SVT (supraventricular tachycardia) Assessment/Plan: -continue metoprolol Code(s): I47.1 - SUPRAVENTRICULAR TACHYCARDIA (3) HLD (hyperlipidemia) Assessment/Plan: -placed on lipitor -continue currently Code(s): E78.5 - HYPERLIPIDEMIA, UNSPECIFIED Assessment/Plan Dispo -plan for discharge tomorrow
--- NOTE | 2017-10-11 14:21 | ECHO ---
Name: JULIANNA WIN Exam:Adult Echocardiogram Study Date: 10/11/2017 08:38 AM Age: 47 yrs Reason For Study: TIA Height: 60 in Weight: 195 lb BSA: 1.8 m2 MMode/2D Measurements & Calculations IVSd: 1.1 cm Ao root diam: 2.6 cm LVIDd: 4.5 cm LA dimension: 2.5 cm LVIDs: 3.0 cm LVPWd: 0.94 cm EDV(Teich): 90.4 ml ESV(Teich): 35.9 ml Doppler Measurements & Calculations MV E max gerson: 67.4 cm/sec TR max gerson: 127.6 cm/sec MV A max gerson: 76.2 cm/sec TR max P.5 mmHg MV E/A: 0.89 MV dec time: 0.30 sec Med Peak E' Gerson: 6.3 cm/sec Med E/e': 10.7 Lat Peak E' Gerson: 11.0 cm/sec Lat E/e': 6.1 Procedure A two-dimensional transthoracic echocardiogram with color flow and Doppler was performed. The study w as technically difficult with many images being suboptimal in quality. The study was non-diagnostic in q uality. No definitive statements could be made about this echo due to extremely poor acoustic windows. Left Ventricle The left ventricular size, thickness and function are normal. The left ventricular ejection fraction is normal. Regional wall motion abnormalities cannot be excluded due to limited visualization. Right Ventricle The right ventricle is not well visualized. Atria Normal left and right atrial size and function. Mitral Valve The mitral valve is not well visualized. Tricuspid Valve The tricuspid valve is not well visualized. Aortic Valve The aortic valve is not well visualized. Pulmonic Valve The pulmonic valve is not well visualized. Great Vessels The aortic root is normal size. Interpretation Summary The study was technically difficult with many images being suboptimal in quality. Regional wall motion abnormalities cannot be excluded due to limited visualization. The mitral valve is not well visualized. The tricuspid valve is not well visualized. The aortic valve is not well visualized. The pulmonic valve is not well visualized. The study was non-diagnostic in quality. No definitive statements could be made about this echo due t o extremely poor acoustic windows. MD Александр Cardoso 10/11/2017 02:21 PM
[2017-10-11 15:19] VITALS: BMI 38.1
[2017-10-11] MEDS ORDERED: DOCUSATE SODIUM 100 MG CAPSULE (FP) PO ONE (20:45)
[2017-10-11] MEDS ORDERED: ATORVASTATIN CA 40 MG TABLET (FP) PO SCH (22:00)
[2017-10-12] MEDS: HEPARIN NA (PORCINE) 5,000 UNITS/ML 1ML VIAL SQ SCH (05:12)
[2017-10-12 06:52] VITALS: TEMP 98.6
--- NOTE | 2017-10-12 07:24 | PN ---
Progress Note (short form) - Note Progress Note: Transient left sided numbness HPI 47 year old female history of htn, rapid heart rate, reflux, fatty liver diseae . 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 She was driving home from work and experience left face numbness, and it spread to arm and leg. She came to ed, and was evauluated for tpa and symptoms were resolving. She denies taking apsirin statin, no dm, no cad or stroke in past. Her mom has diabetes. her symptoms are completely resolved Neurological Examination Alert oriented x 3 speech is normal eomi, pupils reactive, no face asymmetry facial arm and leg sensation is normal motor strength in upper and lower extremity is noraml reflex are normal and symmetrical ct head is normal, mri of brain and carotid ultrasound is normal Assessment- Probable TIA, sensory symptoms resolved. - she may have mild left rotator cuff injury , as there restriciton of movement and join pain Plan- she can be discharged on aspirin and statin and follow up with me outpatient - stroke education was discussed -Follow up outpatient Thanking you so much Harpreet Mullen MD
[2017-10-12 08:35] VITALS: BP 96/64; PULSE 80
[2017-10-12] MEDS: CYCLOBENZAPRINE HCL 10 MG TABLET (FP) PO SCH (08:59)
[2017-10-12] MEDS: ASPIRIN 81 MG CHEWABLE TABLETS PO SCH (08:59)
[2017-10-12] MEDS: metoPROLOL SUCCINATE 25 MG TAB.SR.24H (FP) PO SCH (08:59)
--- NOTE | 2017-10-12 12:44 | DS ---
Physical Examination Vital Signs: Vital Signs Temperature 37.0 C 10/12/17 08:35 Pulse Rate 80 10/12/17 08:35 Respiratory Rate 16 10/12/17 08:35 Blood Pressure 96/64 10/12/17 08:35 O2 Sat by Pulse Oximetry (%) 98 10/12/17 10:00 Constitutional: Yes: Well Nourished, No Distress, Calm Cardiovascular: Yes: Regular Rate and Rhythm. No: Gallop, Murmur, Rub Respiratory: Yes: Regular, CTA Bilaterally. No: Rales, Rhonchi, Wheezes Gastrointestinal: Yes: Normal Bowel Sounds, Soft. No: Distention, Tenderness Extremities: Yes: WNL Edema: No Labs: CBC, BMP 10/11/17 08:15 10/11/17 08:15 Discharge Summary Reason For Visit: NUMBNESS OF LEFT SIDE Current Active Problems HLD (hyperlipidemia) (Acute) Left sided numbness (Acute) Hospital Course: (1) Left sided numbness/TIA Code(s): R20.0 - ANESTHESIA OF SKIN (2) SVT (supraventricular tachycardia) Code(s): I47.1 - SUPRAVENTRICULAR TACHYCARDIA (3) HLD (hyperlipidemia) Code(s): E78.5 - HYPERLIPIDEMIA, UNSPECIFIED Ms Casiano is a very pleasant 47 year old female who came in with numbness and found to have a TIA. She was admitted under observation and seen by neurology. Her lipid profile was checked and she was started on lipitor. ECHO and carotid ultrasound were obtained and normal. Neurology saw the patient and ordered an MRI. It was most consistent with a TIA. She will be started on aspirin. She will follow up with neurology. She was instructed on a diet and exercise program. She is safe for discharge home. 32 minutes spent in preparation of this discharge. Condition: Good - Instructions Diet, Activity, Other Instructions: low fat diet. resume previous activity Referrals: Harpreet Mullen MD [Staff Physician] - Stephen Hernandez MD [Primary Care Provider] - 1 Week Disposition: HOME - Home Medications Comprehensive Discharge Medication List: Ambulatory Orders Metoprolol Succinate [Toprol XL -] 25 mg PO DAILY #30 tab.sr.24h 06/09/17 Omeprazole 20 mg PO DAILY 10/11/17 Aspirin [ASA -] 81 mg PO DAILY tab.chew 10/12/17 Atorvastatin Ca [Lipitor] 40 mg PO HS #30 tablet 10/12/17 Cyclobenzaprine HCl [Flexeril -] 5 mg PO DAILY #30 tablet 10/12/17
== END 2017-10-12 15:36 | disposition home or self-care (01) ==
LOC: JER 18:53 → JERBED 10-11 12:59 → J4S 10-11 14:30
PROVIDERS: ADMIT Internal Medicine; ATTEND Internal Medicine
PROC: 3E013GC Introduction of Other Therapeutic Substance into Subcutaneous Tissue, Percutaneous Approach (ICD-10-PCS; principal; 2017-10-11)
DX: R20.0 Anesthesia of skin (principal); I10 Essential (primary) hypertension; I47.1 Supraventricular tachycardia; I48.91 Unspecified atrial fibrillation; E78.5 Hyperlipidemia, unspecified; K21.9 Gastro-esophageal reflux disease without esophagitis; M79.7 Fibromyalgia; Z79.82 Long term (current) use of aspirin
CPT/HCPCS: 36415; 70450-TC; 70551-TC; 71045-TC-FY; 72050-TC-FY; 80048; 80053; 80061; 81003; 82550; 83721; 83735; 84100; 84443; 84484; 85025; 85027; 85610; 86850; 86900; 86901; 93005; 93010; 93306-TC; 93880-TC; 99283-25; G0378; J1644

== ENCOUNTER 2024-01-16 08:49 | Emergency (ER) | payer OTHER ==
[2024-01-16 09:01] VITALS: BP 147/88; PULSE 82; RESP 18; TEMP 98.9; BMI 32.0
[2024-01-16] MEDS: SODIUM CHLORIDE FOR INHALATION 3 ML VIAL.NEB IH ONE (09:42)
[2024-01-16] MEDS ORDERED: AMOXICILLIN 250 MG CAPSULE ONE (13:08)
[2024-01-16] MEDS: AMOXICILLIN 500 MG CAPSULE (FP) PO ONE (13:11)
== END 2024-01-16 13:21 | disposition home or self-care (01) ==
LOC: JERFT 08:49
DX: J18.9 Pneumonia, unspecified organism (principal); R50.9 Fever, unspecified; R05.9 Cough, unspecified; Z20.822 Contact with and (suspected) exposure to COVID-19
CPT/HCPCS: 0241U-QW; 71046-TC-FY; 71250-TC; 99284-25